=== PATIENT | female | born 1950 | race African-American/Black ===

== ENCOUNTER 2018-04-26 16:43 | Emergency (ER) | payer OTHER ==
[~2018-04-26] VITALS: Ht 180.3 cm; Wt 93.0 kg
[~2018-04-26 16:43] MED LIST: AMOXICILLIN 50500 M1 PO; CARVEDILOL12.5 MG PO; PREDNISONE 20 M20 MG PO; REGLAN 5 MG TAB5 M1 PO; TRIAMCINOLONE A80 G2 TOP
[2018-04-26] MEDS ORDERED: KEFLEX500 M1 PO (17:10)
[2018-04-26] MEDS ORDERED: PREDNISONE 20 M20 MG PO (17:10)
[2018-04-26] MEDS ORDERED: NORVASC5 M1 PO (17:57)
[2018-04-26 18:26] VITALS: BP 213/148
== END 2018-04-26 18:27 | disposition home or self-care (01) ==
LOC: ER 16:43
DX: H57.8 Other specified disorders of eye and adnexa (principal); I10 Essential (primary) hypertension; Z88.1 Allergy status to other antibiotic agents; Z88.8 Allergy status to other drugs, medicaments and biological substances

== ENCOUNTER 2018-05-04 20:12 | Emergency (ER) | payer OTHER ==
[~2018-05-04] VITALS: Ht 180.3 cm; Wt 93.0 kg
[~2018-05-04 20:12] MED LIST changes: +KEFLEX500 M1 PO; +NORVASC5 M1 PO
[2018-05-04] MEDS ORDERED: CLEOCIN HCL150 MG PO (20:57)
[2018-05-04] MEDS ORDERED: NORVASC10 MG PO (22:39)
[2018-05-04 22:43] VITALS: BP 199/108
== END 2018-05-04 22:45 | disposition left against medical advice (07) ==
LOC: ER 20:12
DX: L03.211 Cellulitis of face (principal); I10 Essential (primary) hypertension; Z91.14 Patient's other noncompliance with medication regimen; Z88.1 Allergy status to other antibiotic agents; Z88.8 Allergy status to other drugs, medicaments and biological substances